=== PATIENT | female | born 1990 | race African-American/Black ===

== ENCOUNTER 2019-08-09 12:12 | Outpatient (CLI) | payer BC ==
--- NOTE | 2019-08-09 13:03 | RAD ---
XR Chest Pa Lat STANDARD HISTORY: Immunization is due. Patient is allergic to PPD COMPARISON: None FINDINGS: The heart size is normal. The lungs are well expanded without focal areas of consolidation, pneumothorax or pleural effusions. IMPRESSION: No radiographic evidence of acute cardiopulmonary process. No evidence of active pulmonar y tuberculosis.
== END 2019-08-09 12:13 | disposition home or self-care (01) ==
LOC: BURRAD 12:12
PROVIDERS: ATTEND Clinical Nurse Specialist Medical-Surgical
DX: Z23 Encounter for immunization (principal)
CPT/HCPCS: 71046